=== PATIENT | male | born 1985 | race Two or more races ===

== ENCOUNTER 2018-11-28 12:59 | Emergency (ER) | payer MEDICAID ==
[~2018-11-28] VITALS: Ht 182.9 cm; Wt 145.0 kg
[~2018-11-28 12:59] MED LIST: ibuprofen
[2018-11-28] MEDS ORDERED: HYDROCODONE/ACETAMINOPHEN 5/325MG TABLET PO ONE (15:45)
[2018-11-28 17:49] VITALS: BP 159/95
== END 2018-11-28 17:52 | disposition home or self-care (01) ==
LOC: ER 12:59
DX: S20.212A Contusion of left front wall of thorax, initial encounter (principal); F12.10 Cannabis abuse, uncomplicated; Z88.6 Allergy status to analgesic agent; Z91.018 Allergy to other foods; Z91.010 Allergy to peanuts; J45.909 Unspecified asthma, uncomplicated; Z90.49 Acquired absence of other specified parts of digestive tract; W01.198A Fall on same level from slipping, tripping and stumbling with subsequent striking against other object, initial encounter; Y93.89 Activity, other specified; Y92.89 Other specified places as the place of occurrence of the external cause; Y99.8 Other external cause status
CPT/HCPCS: 71101; 99283

== ENCOUNTER 2019-05-21 13:27 | Inpatient (IN) | payer MEDICAID, OTHER ==
[~2019-05-21] VITALS: Ht 182.9 cm; Wt 149.7 kg
[2019-05-21] MEDS ORDERED: ONDANSETRON 4MG ODT PO STA (17:11)
[2019-05-21] MEDS ORDERED: HYDROCODONE/ACETAMINOPHEN 5/325MG TABLET PO STA (17:11)
[2019-05-21] MEDS ORDERED: ACETAMINOPHEN 500MG TABLET PO ONE (17:45)
[2019-05-21 17:54] LABS: CLARITY URINE CLEAR (CLEAR); COLOR URINE YELLOW (YELLOW); KETONES URINE TRACE (NEGATIVE); LEUKOCYTE ESTERASE URINE TRACE (NEGATIVE); NITRITE URINE NEGATIVE (NEGATIVE); OCCULT BLOOD URINE NEGATIVE (NEGATIVE); PROTEIN URINE TRACE (NEGATIVE); SPECIFIC GRAVITY URINE 1.029 (1.005-1.030); UROBILINOGEN URINE 0.2 E.U./dL (0.2-1.0)
[2019-05-21 18:26] LABS: BASOPHILS % 0.6 % (0.0-2.0); CHLORIDE 104 mEq/L (98-107); EOSINOPHILS % 1.9 % (0.0-5.0); HEMATOCRIT. 47.3 % (42.0-52.0); HEMOGLOBIN. 15.6 g/dL (14.0-18.0); LYMPHOCYTES % 26.3 % (20.0-50.0); MEAN CORPUSCULAR HEMOGLOBIN 29.4 pg (28.0-32.0); MEAN CORPUSCULAR VOLUME 89.1 fL (80.0-94.0); MEAN PLATELET VOLUME 7.2 fl (7.4-10.4); MONOCYTES % 6.7 % (2.0-8.0); NEUTROPHILS % 64.5 % (40.0-76.0); PLATELET 309 x1000/uL (130-400); RED BLOOD CELL COUNT 5.31 mill/uL (4.7-6.1); RED CELL DISTRIBUTION WIDTH 13.6 % (11.6-14.6)
[2019-05-21] MEDS ORDERED: MORPHINE SULFATE 10 MG/ML CPJ IM ONE (22:00)
[2019-05-21] MEDS ORDERED: SODIUM CHLORIDE 0.9% 1,000 ML IV ONE (22:25)
[2019-05-22 02:15] VITALS: BP 127/75
[2019-05-22 04:00] VITALS: BP 148/66
[2019-05-22] MEDS ORDERED: HYDRALAZINE 20MG/ML VIAL IV PRN (07:00)
[2019-05-22] MEDS ORDERED: DOCUSATE SODIUM 100MG CAPSULE PO PRN (07:00)
[2019-05-22] MEDS ORDERED: LORAZEPAM 2MG/ML CPJ IV PRN (07:00)
[2019-05-22] MEDS ORDERED: CLONIDINE 0.1MG TABLET PO PRN (07:00)
[2019-05-22] MEDS ORDERED: IPRATROPIUM/ALBUTEROL 0.5-3(2.5)MG/3ML NEB HHN PRN (07:00)
[2019-05-22] MEDS ORDERED: NA PHOS,M-B/NA PHOS,DI-BA ENEMA 118ML PR PRN (07:00)
[2019-05-22] MEDS ORDERED: ONDANSETRON HCL 4MG/2ML INJ IV PRN (07:00)
[2019-05-22] MEDS ORDERED: MAGNESIUM/ALUMINUM HYDROXIDE/SIMETHICONE 30ML UDC PO PRN (07:00)
[2019-05-22] MEDS ORDERED: MORPHINE SULFATE 2 MG/ML CPJ (NOT FOR IM USE) IV PRN (07:00)
[2019-05-22] MEDS ORDERED: DIPHENHYDRAMINE 50MG/ML VIAL IV PRN (07:00)
[2019-05-22] MEDS ORDERED: GUAIFENESIN 200MG/10ML SUGAR FREE UDC PO PRN (07:00)
[2019-05-22] MEDS ORDERED: HYDROCODONE/ACETAMINOPHEN 10/325MG TABLET PO PRN (07:00)
[2019-05-22] MEDS ORDERED: ACETAMINOPHEN 325MG TABLET PO PRN (07:00)
[2019-05-22] MEDS ORDERED: DEXT 5%/0.45% NACL 1000ML 1,000 ML IV SCH (07:29)
[2019-05-22] MEDS ORDERED: HYDRALAZINE 10 MG in SODIUM CHLORIDE 0.9% 49.5 ML IV PRN (07:30)
[2019-05-22 08:00] VITALS: BP 140/95
[2019-05-22] MEDS: ENOXAPARIN 40MG/0.4ML SYR SUBCUT SCH ×2 (08:59→09:00)
[2019-05-22 12:00] VITALS: BP 146/91
[2019-05-22] MEDS ORDERED: SODIUM CHLORIDE 0.9% INJ 3ML FLUSH IVF SCH (14:00)
[2019-05-22 14:11] VITALS: BP 140/88
== END 2019-05-22 14:32 | disposition home or self-care (01) | DRG 254 ==
LOC: ER 13:27 → 6EST 05-22 00:30 → EDBEDREQ 05-22 00:31 → EDBEDREQDT 05-22 00:31 → EDBEDREQTM 05-22 00:31 → ENRESERV 05-22 01:27
PROVIDERS: ADMIT Internal Medicine; ATTEND Internal Medicine
DX: K43.0 Incisional hernia with obstruction, without gangrene (principal); E66.01 Morbid (severe) obesity due to excess calories; R16.0 Hepatomegaly, not elsewhere classified; K57.30 Diverticulosis of large intestine without perforation or abscess without bleeding; J45.909 Unspecified asthma, uncomplicated; Z68.41 Body mass index [BMI] 40.0-44.9, adult; Z90.49 Acquired absence of other specified parts of digestive tract; Z71.41 Alcohol abuse counseling and surveillance of alcoholic; Z88.8 Allergy status to other drugs, medicaments and biological substances; Z91.018 Allergy to other foods; Z91.010 Allergy to peanuts
CPT/HCPCS: 36415; 74176; 80053; 81003; 83605; 85025; 99285; J1650; J2270; J2405; J7030; Q0162

== ENCOUNTER 2019-10-04 13:52 | Emergency (ER) | payer SELFPAY ==
[~2019-10-04] VITALS: Ht 182.9 cm; Wt 145.0 kg
[2019-10-04 19:15] VITALS: BP 144/87
== END 2019-10-04 19:37 | disposition home or self-care (01) ==
LOC: ER 13:52
DX: N48.1 Balanitis (principal); F12.90 Cannabis use, unspecified, uncomplicated; Z88.6 Allergy status to analgesic agent; Z91.02 Food additives allergy status; Z91.018 Allergy to other foods
CPT/HCPCS: 99283

== ENCOUNTER 2020-01-07 06:39 | Emergency (ER) | payer SELFPAY ==
[~2020-01-07] VITALS: Ht 182.9 cm; Wt 145.0 kg
[2020-01-07 06:43] VITALS: BP 169/90
[2020-01-07] MEDS ORDERED: OXYCODONE HCL/ACETAMINOPHEN 5/325MG TABLET PO ONE (07:15)
== END 2020-01-07 08:34 | disposition home or self-care (01) ==
LOC: ER 06:39
DX: S90.112A Contusion of left great toe without damage to nail, initial encounter (principal); W22.8XXA Striking against or struck by other objects, initial encounter; Y93.01 Activity, walking, marching and hiking; Y92.89 Other specified places as the place of occurrence of the external cause
CPT/HCPCS: 73630; 99283

== ENCOUNTER 2022-01-16 14:16 | Emergency (ER) | payer OTHER ==
[~2022-01-16] VITALS: Ht 172.7 cm; Wt 150.0 kg
[2022-01-16 14:25] VITALS: BP 179/125
[2022-01-16] MEDS ORDERED: ACETAMINOPHEN 325MG TABLET PO ONE (15:45)
[2022-01-16] MEDS ORDERED: BACL-141 MT (16:55)
[2022-01-16] MEDS ORDERED: IBUP-2029 MT (16:55)
== END 2022-01-16 17:10 | disposition home or self-care (01) ==
LOC: ER 14:16
DX: S43.492A Other sprain of left shoulder joint, initial encounter (principal); R00.0 Tachycardia, unspecified; X58.XXXA Exposure to other specified factors, initial encounter; Y93.84 Activity, sleeping; Y92.013 Bedroom of single-family (private) house as the place of occurrence of the external cause
CPT/HCPCS: 73030; 99283; A4565

== ENCOUNTER 2022-10-20 23:57 | Emergency (ER) | payer OTHER ==
[~2022-10-20 23:57] MED LIST changes: +BACL-141 MT; +IBUP-2029 MT
[2022-10-21] MEDS ORDERED: FAMOTIDINE 20MG/2ML VIAL IV ONE (00:15)
[2022-10-21] MEDS ORDERED: EPINEPHRINE 1:1000 1 MG/ML AMP SUBCUT ONE (00:15)
[2022-10-21] MEDS ORDERED: DIPHENHYDRAMINE 50MG/ML VIAL IV ONE (00:15)
[2022-10-21] MEDS ORDERED: DEXAMETHASONE 10 MG/ML VIAL IV ONE (00:15)
[2022-10-21] MEDS ORDERED: SODIUM CHLORIDE 0.9% 1,000 ML IV SCH (00:15)
[2022-10-21] MEDS ORDERED: PRED10TA MT (01:44)
[2022-10-21 02:00] VITALS: BP 133/75; PULSE 96; RESP 18
== END 2022-10-21 02:00 | disposition home or self-care (01) ==
LOC: ER 23:57
DX: T78.1XXA Other adverse food reactions, not elsewhere classified, initial encounter (principal); F12.10 Cannabis abuse, uncomplicated; J45.909 Unspecified asthma, uncomplicated; Z91.018 Allergy to other foods; Z88.6 Allergy status to analgesic agent; Z91.010 Allergy to peanuts; Z90.49 Acquired absence of other specified parts of digestive tract; X58.XXXA Exposure to other specified factors, initial encounter
CPT/HCPCS: 99291; 96361; 96372; 96374; 96375; J1100; J1200; J3490 ×2; Z7610

== ENCOUNTER 2024-05-17 09:38 | Emergency (ER) | payer OTHER ==
[~2024-05-17] VITALS: Ht 182.9 cm; Wt 174.0 kg
[~2024-05-17 09:38] MED LIST changes: +PRED10TA MT
[2024-05-17 09:44] VITALS: O2SAT 99
[2024-05-17 09:56] VITALS: BP 132/82; PULSE 100; RESP 16; TEMP 37.1; O2SAT 96
[2024-05-17 10:26] LABS: BASOPHILS % 0.7 % (0.0-2.0); EOSINOPHILS % 2.2 % (0.0-5.0); HEMATOCRIT. 43.9 % (42.0-52.0); HEMOGLOBIN. 14.9 g/dL (14.0-18.0); MEAN CORPUSCULAR HEMOGLOBIN 31.1 pg (28.0-32.0); MEAN CORPUSCULAR HGB CONC 33.9 g/dL (31.0-37.0); MEAN CORPUSCULAR VOLUME 91.8 fL (80.0-94.0); MEAN PLATELET VOLUME 7.3 fl (7.4-10.4); MONOCYTES % 4.8 % (2.0-8.0); NEUTROPHILS % 72.3 % (40.0-76.0); PLATELET 174 x1000/uL (130-400); RED BLOOD CELL COUNT 4.78 mill/uL (4.7-6.1); RED CELL DISTRIBUTION WIDTH 14.1 % (11.6-14.6); WHITE BLOOD COUNT 5.8 x1000/uL (4.5-11.0)
[2024-05-17 10:35] LABS: CARBON DIOXIDE 26 mEq/L (21-32); CHLORIDE 101 mEq/L (98-107); POTASSIUM 4.2 mEq/L (3.5-5.1); SODIUM 134 mEq/L (136-145)
[2024-05-17 10:36] LABS: CALCIUM 9.1 mg/dL (8.7-10.4)
[2024-05-17 10:41] LABS: CREATININE 0.7 mg/dL (0.6-1.3); UREA NITROGEN BLOOD 7 mg/dL (9-23)
[2024-05-17 10:43] LABS: GLUCOSE 278 mg/dL (70-105); TROPONIN I HIGH SENSITIVITY < 4 ng/L (3.0-53)
[2024-05-17 11:10] VITALS: TEMP 98.7
[2024-05-17] MEDS: ACETAMINOPHEN 500MG TABLET PO NR (11:10)
[2024-05-17] MEDS ORDERED: ACET-2708 MT (11:13)
[2024-05-17] MEDS ORDERED: METH-653 MT (11:13)
== END 2024-05-17 11:25 | disposition home or self-care (01) ==
LOC: ER 09:38
DX: J11.1 Influenza due to unidentified influenza virus with other respiratory manifestations (principal); J45.909 Unspecified asthma, uncomplicated; F12.90 Cannabis use, unspecified, uncomplicated; Z88.6 Allergy status to analgesic agent; Z90.49 Acquired absence of other specified parts of digestive tract; Z79.899 Other long term (current) drug therapy
CPT/HCPCS: 36415; 71045; 80048; 84484; 85025; 93005; 99285

== ENCOUNTER 2024-11-20 08:01 | Emergency (ER) | payer OTHER ==
[~2024-11-20] VITALS: Ht 182.9 cm; Wt 158.8 kg
[~2024-11-20 08:01] MED LIST changes: +ACET-2708 MT; +METH-653 MT
[2024-11-20 08:03] VITALS: BP 163/100; TEMP 36.9; O2SAT 98
[2024-11-20 08:04] VITALS: PULSE 99; RESP 16; O2SAT 97
[2024-11-20] MEDS ORDERED: OCUFLX RIGHTEYE (08:25)
== END 2024-11-20 08:35 | disposition home or self-care (01) ==
LOC: ER 08:01
DX: H10.9 Unspecified conjunctivitis (principal); J45.909 Unspecified asthma, uncomplicated; F10.90 Alcohol use, unspecified, uncomplicated; F12.90 Cannabis use, unspecified, uncomplicated; Z88.6 Allergy status to analgesic agent; Z79.899 Other long term (current) drug therapy; Z90.49 Acquired absence of other specified parts of digestive tract; Y90.9 Presence of alcohol in blood, level not specified
CPT/HCPCS: 99283